=== PATIENT | male | born 1970 | race Two or more races ===

== ENCOUNTER 2017-09-04 09:52 | Outpatient (CLI) | payer OTHER | END 2017-09-04 09:53 | disposition home or self-care (01) | LOC: SC 09:52 | PROVIDERS: ATTEND Internal Medicine Pulmonary Disease | DX: G47.33 Obstructive sleep apnea (adult) (pediatric) (principal) | CPT/HCPCS: 99203; 99212 ==

== ENCOUNTER 2017-12-04 15:40 | Outpatient (CLI) | payer OTHER | END 2017-12-04 15:41 | disposition home or self-care (01) | LOC: SC 15:40 | PROVIDERS: ATTEND Nurse Practitioner Family | DX: G47.33 Obstructive sleep apnea (adult) (pediatric) (principal) | CPT/HCPCS: 99212; 99214 ==

== ENCOUNTER 2019-01-06 | Outpatient (CLI) | payer OTHER | END 2019-01-06 15:05 | disposition home or self-care (01) | DX: G47.33 Obstructive sleep apnea (adult) (pediatric) (principal) | CPT/HCPCS: 99212; 99213 ==

== ENCOUNTER 2021-01-13 11:03 | Outpatient (CLI) | payer OTHER ==
--- NOTE | 2021-01-13 11:27 | SLEEP CARE CONSULTATION ---
Information from patient questionnaire entered by Candice Fernandez. I have reviewed and concur with the information entered by Candice Fernandez. This document represents the service I personally performed and the decisions made by , Nalini Wilson ARNP. History of Present Illness Service Date and Time: 01/13/2021 1103 Previous diagnosis: Severe, Obstructive Sleep Apnea-Hypopnea Syndrome AHI: 35.4 (in 2010) Reason for follow up: annual (last seen 01/2020) Equipment type: CPAP Equipment obtained from: [facility] (getting supplies as needed) Mask style: Nasal Backup mask available: Yes (old mask) Last cushion change: 2 days ago Prior sleep studies: Yes Year and Where: [address] [place] [address] Sleep Lab Type of Sleep Study: Polysomnography HPI additional information: SHIMON ALEMAN was diagnosed to have severe, AHI 35.4, obstructive sleep apnea- hypopnea syndrome and returned today for CPAP therapy annual follow-up. CPAP Compliance Data - Data Reviewed with Patient Average duration of nightly device use: 5 hr 27 min Compliance rate %: 78.3 (180 days) Current pressure setting (cmH2O): 8-12 Humidity settin Heated hose settin Average residual AHI: 1.4 Average large leak: 0 Subjective Patient concerns: denies: aerophagia, mask discomfort, air blowing in eyes, mask leak noise, condensation in mask/hose, nasal congestion, dry mouth, nose, throat, epistaxis, other Observed to snore while using device: No Current pressure setting perceived as: comfortable On therapy, patient: reports: sleeping better, awakening more refreshed, being more awake and alert during the day, more rested overall. denies: drowsiness while driving Initial [place] Sleepiness Scale score: 1 (in 2018) Current [place] Sleepiness Scale score: 0 Allergies and Home Medications Home medication list reviewed: Yes (no changes) Review of Systems Review of systems same as previous: Yes (no changes) Physical Exam Heart Rate: 75 O2 Saturation: 97 Height: 5 ft 10 in Weight: 201 lb Weight change since last visit: 7 lb gain Body Mass Index: 28.8 BMI Classification: Overweight Impression and Plan 1. Obstructive Sleep Apnea-Hypopnea Syndrome, severe, with good treatment compliance and good apnea control. Patient states he gets good rest and he does not snore which is very good with the . Patient has no complaints and is very satisfied with his current treatment. We do not need to make any adjustments to his pressure. Patient is aware that his machine is on a recall. He has been waiting for a letter or call back from [facility] for other information to help him to get his machine registered. I encouraged him to get a hold of them if he cannot get online to the [employer] website to register his device. Patient denies any black particles seen in machine or hoses, any unusual odors coming from device. Patient has not experienced any physical symptoms such as upper airway irritation, headache, skin or eye irritation, ast hma, nausea/vomiting, difficulty breathing or chest pain. Patient informed that they may use an inline CPAP filter that they can obtain online to reduce chance of any particles being inhaled or ingested. We discussed thoroughly the health risks of not using the CPAP versus continuing use with the filter in place. If patient is not able to sleep due to waking up choking, gasping for air or other respiratory distress that they may decide to continue using it until it is either replaced or repaired. Patient also advised to try to lose weight. Patient voiced understanding and agreement with plan. Patient's apnea severity and rationale for treatment to reduce apnea, improve sleep quality and reduce cardiovascular and cerebrovascular events was reviewed. Patient was encouraged to try to lose weight. * Continue auto CPAP pressure at 8-12 cmH2O * Patient to contact [facility] to get information on how to register for recall on his device * Notify me if snoring with mask or feeling that the pressure is too much or too little * Attempt to lose weight * Call this office if any problems using CPAP * Return for follow up in 1 year, or sooner if concerns arise Counseling Topics: Spare mask, Weight loss health impact Visit Type: In Office Time Spent with Patient (minutes): 15 Provider Statement: I spent 100% of the Face to Face Visit with the patient with greater than 50% spent counseling the patient and coordination of care.
== END 2021-01-13 11:04 | disposition home or self-care (01) ==
LOC: SC 11:03
PROVIDERS: ATTEND Nurse Practitioner Family
DX: G47.33 Obstructive sleep apnea (adult) (pediatric) (principal)
CPT/HCPCS: 99212; 99213

== ENCOUNTER 2022-03-08 15:38 | Outpatient (CLI) | payer OTHER ==
--- NOTE | 2022-03-08 16:32 | SLEEP CARE CONSULTATION ---
Information from patient questionnaire entered by Corina Orosco MA. I have reviewed and concur with the information entered by Corina Orosco MA. This document represents the service I personally performed and the decisions made by , Nalini Wilson ARNP. History of Present Illness Service Date and Time: 03/08/2022 1538 Previous diagnosis: Severe, Obstructive Sleep Apnea-Hypopnea Syndrome AHI: 35.4 (in 2010) Reason for follow up: annual Equipment type: CPAP Equipment obtained from: [facility] (getting supplies as needed) Mask style: Nasal Backup mask available: Yes (old mask) Last cushion change: 1 week Prior sleep studies: Yes Year and Where: [address] [place] [address] Sleep Lab Type of Sleep Study: Polysomnography HPI additional information: SHIMON ALEMAN was diagnosed to have severe, AHI 35.4, obstructive sleep apnea- hypopnea syndrome and returned today for CPAP therapy annual follow-up. Sleep Study - Results Type of Sleep Study: Polysomnography Prior sleep studies: Yes Year and Where: [address] [place] [address] Sleep Lab CPAP Compliance Data - Data Reviewed with Patient Average duration of nightly device use: 6 hours 52 minutes Compliance rate %: 89.4 (165/180 days used) Current pressure setting (cmH2O): 8-12 Average residual AHI: 1.3 Central apnea: 0.1 Obstructive apnea: 0.2 Average large leak: 4.3 L/min Subjective Missed days of use due to: reports: travel (camping) Patient concerns: denies: aerophagia, mask discomfort, air blowing in eyes, mask leak noise, condensation in mask/hose, nasal congestion, dry mouth, nose, throat, epistaxis Observed to snore while using device: No Current pressure setting perceived as: comfortable On therapy, patient: reports: sleeping better, awakening more refreshed, being more awake and alert during the day, more rested overall. denies: drowsiness while driving Initial [place] Sleepiness Scale score: 1 (in 2018) Current [place] Sleepiness Scale score: 0 Allergies and Home Medications Drug allergies reviewed: Yes (NKDA) Home medication list reviewed: Yes (no changes) Allergy and home medication list: Allergies No Known Drug Allergies Allergy (Verified 01/17/14 13:45) Review of Systems Review of systems same as previous: Yes (no changes) Physical Exam Vital signs obtained and entered by: ERIKA TODD Blood Pressure: 132/82 Cuff size: regular Heart Rate: 91 O2 Saturation: 97 Height: 5 ft 9.5 in Weight: 202 lb 4 oz Body Mass Index: 29.4 BMI Classification: Overweight Impression and Plan 1. Obstructive Sleep Apnea-Hypopnea Syndrome, severe, with good treatment compliance and good apnea control. On CPAP therapy, the patient has better sleep quality and is more rested overall. Patient has significant improvement of their sleep apnea and are satisfied with current CPAP therapy. Patient denies problems with oral dryness, nasal congestion, epistaxis, skin irritation or aerophagia. Patient's apnea severity and rationale for treatment to reduce apnea, improve sleep quality and reduce cardiovascular and cerebrovascular events was reviewed. 2. Overweight, unspecified. Currently patients BMI is 29.4. Thus patient is advised to lose weight. Weight loss can be done with reducing portion size, reducing refined foods and balancing content with vegetables, fruit and whole grain foods. In addition, patient encouraged to get regular exercise. The patient's CPAP pressure range should accommodate some weight loss. Symptoms to report for additional pressure adjustment discussed. * Continue auto CPAP pressure at 8-12 cmH2O * Update supplies * Notify me if snoring with mask or feeling that the pressure is too much or too little * Attempt to lose weight * Call this office if any problems using CPAP * Return for follow up in 1 year, or sooner if concerns arise Counseling Topics: Spare mask, Weight loss health impact Visit Type: In Office Time Spent with Patient (minutes): 14 Provider Statement: I spent 100% of the Face to Face Visit with the patient with greater than 50% spent counseling the patient and coordination of care.
[2022-03-08 16:37] VITALS: BP 132/82
== END 2022-03-08 15:39 | disposition home or self-care (01) ==
LOC: SC 15:38
PROVIDERS: ATTEND Nurse Practitioner Family
DX: G47.33 Obstructive sleep apnea (adult) (pediatric) (principal); E66.3 Overweight; Z68.29 Body mass index [BMI] 29.0-29.9, adult
CPT/HCPCS: 99212

== ENCOUNTER 2022-11-04 08:41 | Outpatient (CLI) | payer OTHER ==
--- NOTE | 2022-11-06 10:23 | MRI Report ---
PROCEDURE: CERVICAL SPINE WO INDICATIONS: LT ARM NUMBENESS, PAIN OF UPPER BACK TECHNIQUE: Noncontrast sagittal T1 spin echo and T2 fast spin echo, sagittal STIR, foraminal oblique sagittal T2 fast spin echo, and axial gradient echo or T2 fast spin echo through the cervical spine. COMPARISON: None. FINDINGS: Image quality: Excellent. Alignment and Curvature: There is loss of normal cervical lordosis. Bone Marrow: Marrow demonstrates normal overall signal. There is mild reactive signal throughout th e endplates of the cervical and upper thoracic spine. Spinal Cord: Visualized spinal cord has normal size and signal. No cerebellar tonsillar herniation. Paraspinous Soft Tissues: No paravertebral masses. Prevertebral soft tissues are normal in thicknes s. C2-C3: Mild disc desiccation. Mild facet and uncovertebral hypertrophy. No significant canal nor for aminal stenosis. C3-C4: Mild disc desiccation. Mild facet and uncovertebral hypertrophy bilaterally. Mild canal sten osis. Mild bilateral foraminal stenosis. C4-C5: Mild disc desiccation and diffuse disc bulge with small superimposed central protrusion. Mild facet and uncovertebral hypertrophy. Mild canal stenosis. Mild bilateral foraminal stenosis. C5-C6: Mild disc height loss and desiccation. Mild diffuse disc bulge. Mild facet and uncovertebral hypertrophy bilaterally. Moderate to severe canal stenosis. Minimal right cord flattening. Mild bilat eral foraminal stenosis. C6-C7: Mild disc desiccation and diffuse disc bulge with superimposed broad-based left posterolatera l protrusion. Mild facet and uncovertebral hypertrophy bilaterally. Moderate canal stenosis. Severe l eft and mild right foraminal stenosis. Left C7 nerve root compression. C7-T1: Moderate disc desiccation. Mild facet and uncovertebral hypertrophy bilaterally. No significa nt canal nor foraminal stenosis IMPRESSION: 1. Multilevel degenerative disc and facet disease as well as uncovertebral hypertrophy. 2. Multilevel canal stenoses, worst at C5-C6 where there is minimal cord flattening. 3. Multilevel foraminal stenoses, worst at C6-C7 where there is associated intraforaminal nerve root compression. Recommend correlation with clinical symptoms to ascertain relevance of this finding. Reviewed by: Lanny Trimble MD on 11/06/2022 10:21 AM PDT Approved by: Lanny Trimble MD on 11/06/2022 10:21 AM PDT Station ID: [id number]
== END 2022-11-04 08:42 | disposition home or self-care (01) ==
LOC: DI 08:41
PROVIDERS: ATTEND Student in an Organized Health Care Education/Training Program
DX: M50.31 Other cervical disc degeneration, high cervical region (principal); M48.02 Spinal stenosis, cervical region; M50.123 Cervical disc disorder at C6-C7 level with radiculopathy; M47.22 Other spondylosis with radiculopathy, cervical region

== ENCOUNTER 2023-03-28 16:04 | Outpatient (CLI) | payer OTHER ==
--- NOTE | 2023-03-28 16:33 | Sleep Patient Instructions ---
Sleep Center Visit Summary - Patient Visit Information Reason for Visit: Annual Visit - Patient Instructions Additional Instructions: You will continue with CPAP therapy with pressure set at 8-12 cmH2O. A supply prescription will be updated with your DME. We encourage you to continue to try to lose weight. Please follow up with the sleep care office in 1 year. - Clinic Information Contact: [facility] [address] [place] [address] [email or web address] T: [phone]
--- NOTE | 2023-03-28 16:44 | SLEEP CARE CONSULTATION ---
Information from patient questionnaire entered by Bree Kaur. I have reviewed and concur with the information entered by Bree Kaur. This document represents the service I personally performed and the decisions made by , Nalini Wilson ARNP. History of Present Illness Service Date and Time: 03/28/2023 1604 Previous diagnosis: Severe, Obstructive Sleep Apnea-Hypopnea Syndrome AHI: 35.4 (in 2010) Reason for follow up: annual (LAST SEEN 03/2022) Equipment type: CPAP (Dreamstation 2; s/u 10/2017; NEED SD CARD FOR DOWNLOAD) Equipment obtained from: [facility] (getting supplies as needed) Mask style: Nasal Mask brand: Resmed (AirFit [id number]) Backup mask available: No (will keep old mask when replaced) Last cushion change: 1 week ago Prior sleep studies: Yes Year and Where: [address] [place] [address] Sleep Lab Type of Sleep Study: Polysomnography HPI additional information: SHIMON ALEMAN was diagnosed to have severe, AHI 35.4, obstructive sleep apnea- hypopnea syndrome and returned today for CPAP therapy annual follow-up. Sleep Study - Results Type of Sleep Study: Polysomnography Prior sleep studies: Yes Year and Where: [address] [place] [address] Sleep Lab CPAP Compliance Data - Data Reviewed with Patient Average duration of nightly device use: 7 hours 1 minute Compliance rate %: 93.7 (357/365 days used) Current pressure setting (cmH2O): 8-12 Average residual AHI: 1.3 Central apnea: 0.1 Obstructive apnea: 0.2 Hypopnea: 1 Average large leak: 0 secs Subjective Missed days of use due to: reports: travel (camping) Patient concerns: denies: aerophagia, mask discomfort, air blowing in eyes, mask leak noise, condensation in mask/hose, nasal congestion, dry mouth, nose, throat, epistaxis Observed to snore while using device: No Current pressure setting perceived as: comfortable On therapy, patient: reports: sleeping better, awakening more refreshed, being more awake and alert during the day, more rested overall. denies: drowsiness while driving Initial [place] Sleepiness Scale score: 1 (in 2018) Current [place] Sleepiness Scale score: 0 (03/28/23) Allergies and Home Medications Known drug allergies: No Drug allergies reviewed: Yes Home medication list reviewed: Yes (no changes) Allergy and home medication list: Allergies No Known Drug Allergies Allergy (Verified 03/27/23 12:50) Review of Systems Review of systems same as previous: Yes (no changes) Physical Exam Vital signs obtained and entered by: BREE Gunn MA Blood Pressure: 100/62 (LEFT ARM) Cuff size: regular Heart Rate: 63 O2 Saturation: 98 Height: 5 ft 9.5 in Weight: 214 lb Weight change since last visit: 12 lb gain Body Mass Index: 31.1 BMI Classification: Obese Impression and Plan 1. Obstructive Sleep Apnea-Hypopnea Syndrome, severe, with good treatment compliance and good apnea control. On CPAP therapy, the patient has better sleep quality and is more rested overall. Patient has significant improvement of their sleep apnea and is satisfied with current CPAP therapy. Patient denies problems with oral dryness, nasal congestion, epistaxis, skin irritation or aerophagia. Patient's apnea severity and rationale for treatment to reduce apnea, improve sleep quality and reduce cardiovascular and cerebrovascular events was reviewed. 2. Obesity, unspecified. Currently patients BMI is 31.1. Obesity increases the risk of apnea, CPAP pressure requirements and overall health risks especially cardiovascular and diabetes. Thus patient is advised to lose weight. * Continue auto CPAP pressure at 8-12 cmH2O * Update supply prescription * Notify me if snoring with mask or feeling that the pressure is too much or too little * Attempt to lose weight * Call this office if any problems using CPAP * Return for follow up in 1 year, or sooner if concerns arise Counseling Topics: Spare mask, Weight loss health impact Prescriptions: Device supplies Follow up with Sleep Care in: 1 year Visit Type: In Office Time Spent with Patient (minutes): 20 Provider Statement: I spent 100% of the Face to Face Visit with the patient with greater than 50% spent counseling the patient and coordination of care.
[2023-03-28 16:46] VITALS: BP 100/62; O2SAT 98
== END 2023-03-28 16:05 | disposition home or self-care (01) ==
LOC: SC 16:04
PROVIDERS: ATTEND Nurse Practitioner Family
DX: G47.33 Obstructive sleep apnea (adult) (pediatric) (principal); E66.9 Obesity, unspecified; Z68.31 Body mass index [BMI] 31.0-31.9, adult
CPT/HCPCS: 99212; 99213